=== PATIENT | male | born 1985 | race Caucasian/White ===

== ENCOUNTER 2020-10-19 18:20 | Emergency (ER) | payer OTHER ==
[~2020-10-19 18:20] MED LIST: Iopamidol 370 76% 100 ML VIAL ONE
[2020-10-19] MEDS ORDERED: Dexamethasone 4 MG TAB ONE (19:58)
[2020-10-19] MEDS ORDERED: Albuterol 200 PUFF (6.7GM INHALER) ONE (19:58)
[2020-10-19] MEDS ORDERED: Aspirin Chewable 81 MG TAB ONE (19:58)
[2020-10-19 20:01] LABS: #Lymphocytes 0.8 thou/uL (1.20-3.40); #Monocytes 0.4 thou/uL (0.11-0.59); #Neutrophils 15.9 thou/uL (1.40-6.50); %Basophils 0.1 % (0.0-1.0); %Lymphocytes 4.8 % (21.0-51.0); %Monocytes 2.3 % (0.0-10.0); %Neutrophils 92.8 % (42.0-75.0); Hemoglobin 15.4 g/dL (14.0-18.0); Mean Corpuscular Hemoglobin 29.3 pg (27.0-31.0); Mean Corpuscular Volume 88.9 fL (78.0-98.0); Mean Platelet Volume 6.2 fL (7.4-10.4); Platelet Count 295 thou/uL (130-400); RBC Distribution Width 13.1 % (11.5-14.5); Red Blood Cell (RBC) Count 5.25 mill/uL (4.70-6.10); White Blood Cell (WBC) Count 17.2 thou/uL (4.8-10.8)
[2020-10-19 20:13] LABS: ALT (SGPT) 27 U/L (8-55); AST (SGOT) 17 U/L (5-34); Albumin 4.2 g/dL (3.5-5.0); Alkaline Phosphatase 81 U/L (40-110); Anion Gap 16 mmol/L (10-20); BUN (Urea Nitrogen) 17 mg/dL (8.9-20.6); Bilirubin, Total 0.3 mg/dL (0.2-1.2); Calc. Creatinine Clearance 0 mL/min (70-130); Carbon Dioxide 23 mmol/L (22-29); Chloride 105 mmol/L (98-107); Globulin 3.7 g/dL (2.4-3.5); Glucose 131 mg/dL (70-105); Potassium 3.9 mmol/L (3.5-5.1); Protein, Total 7.9 g/dL (6.0-8.3); Sodium 140 mmol/L (136-145)
[2020-10-19] MEDS ORDERED: Azithromycin 250 MG TAB ONE (20:13)
--- NOTE | 2020-10-20 07:37 | RAD ---
PORTABLE CHEST: DATE: 10/19/2020. FINDINGS: An AP portable film at 2001 is submitted with no prior films available for comparison. Patchy infiltrates are seen bilaterally, worse on the left than right. An infectious etiology seems likely. Pulmonary edema seems less likely. The heart is mildly enlarged. There are no effusions. IMPRESSION: Patchy pulmonary infiltrates. POS: HOME
--- NOTE | 2020-10-20 07:46 | CT ---
CT ANGIO OF THE CHEST: DATE: 10/19/2020. FINDINGS: Spiral CT of the chest was done after a bolus of IV contrast. There is moderately good opacification of the pulmonary arteries and the large to medium-sized branches. No defects are seen here to sugge st a large emboli. Medium-sized distal branches might miss emboli. There is no sign of aortic disse ction or aneurysm. The heart is mildly enlarged, but no pericardial effusion was seen. There are a few enlarged nodes in the mediastinum, one of the largest being just to the left of the aortic arch a nd measuring about 2.6 cm in size. There are some enlarged hilar nodes as well. Diffuse infiltrativ e changes are seen throughout the lungs bilaterally, many of which are ground-glass in character. Th is is present throughout all lobes, moderate in coverage, and in the proper clinical setting would be consistent with COVID infection. There are no large effusions. Scans into the upper part of the ab domen showed no sign of adrenal mass. The liver seemed mildly generous in size. The spleen was bord terrell in size at about 14+ cm. IMPRESSION: 1. Moderate sensitivity study showing no evidence of pulmonary embolism in the large to medium-sized branches. 2. Moderately severe patchy pulmonary infiltrates, all lobes, some of which are ground-glass in appe arance. COVID is included in the differential, as well as other infectious causes. Findings discussed with Dr. Bear at 2111 on 10/19/2020. CODE CR POS: HOME
== END 2020-10-19 21:25 | disposition home or self-care (01) ==
LOC: BURERS 18:20
DX: U07.1 COVID-19 (principal); J12.82 Pneumonia due to coronavirus disease 2019; Z79.899 Other long term (current) drug therapy
CPT/HCPCS: 71045; 71275; 80053; 83605; 84484; 85025; 85379; J8540; Q9967

== ENCOUNTER 2021-10-05 19:31 | Emergency (ER) | payer OTHER ==
[2021-10-05 20:23] LABS: #Eosinphils 0.1 thou/uL (0.0-0.7); #Lymphocytes 1.1 thou/uL (1.20-3.40); #Monocytes 0.9 thou/uL (0.11-0.59); #Neutrophils 8.3 thou/uL (1.40-6.50); %Basophils 0.4 % (0.0-1.0); %Eosinophils 0.6 % (0.0-10.0); %Lymphocytes 10.8 % (21.0-51.0); %Monocytes 8.4 % (0.0-10.0); %Neutrophils 79.9 % (42.0-75.0); Hemoglobin 15.2 g/dL (14.0-18.0); Mean Corpuscular HGB CONC 33.5 g/dL (32.0-36.0); Mean Corpuscular Hemoglobin 29.8 pg (27.0-31.0); Mean Corpuscular Volume 88.7 fL (78.0-98.0); Platelet Count 340 thou/uL (130-400); RBC Distribution Width 12.6 % (11.5-14.5); Red Blood Cell (RBC) Count 5.12 mill/uL (4.70-6.10); White Blood Cell (WBC) Count 10.3 thou/uL (4.8-10.8)
[2021-10-05] MEDS ORDERED: Ketorolac Tromethamine 30 MG/ML VIAL ONE (20:44)
[2021-10-05] MEDS ORDERED: Ondansetron PF 4 MG/2 ML Vial ONE (20:44)
[2021-10-05 20:50] LABS: ALT (SGPT) 22 U/L (8-55); AST (SGOT) 15 U/L (5-34); Alkaline Phosphatase 74 U/L (40-110); Anion Gap 13 mmol/L (10-20); BUN (Urea Nitrogen) 13 mg/dL (8.9-20.6); Bilirubin, Total 0.7 mg/dL (0.2-1.2); Calc. Creatinine Clearance 0 mL/min (70-130); Calcium 8.6 mg/dL (7.8-10.44); Carbon Dioxide 21 mmol/L (22-29); Chloride 105 mmol/L (98-107); Globulin 3.2 g/dL (2.4-3.5); Glucose 97 mg/dL (70-105); Lipase 8 U/L (8-78); Potassium 3.4 mmol/L (3.5-5.1); Protein, Total 7.2 g/dL (6.0-8.3); Sodium 136 mmol/L (136-145)
[2021-10-05 21:00] LABS: Bilirubin Negative (Negative); Blood, Urine Negative (Negative); Clarity Clear (Clear); Glucose, Urine (Dipstick) Negative (Negative); Ketone, Urine Negative (Negative); Leukocyte Negative (Negative); Nitrite Negative (Negative); Protein, Urine (Dipstick) Negative (Neg-Trace); Specific Gravity, Urine 1.015 (1.005-1.030); Urobilinogen 0.2 mg/dL (Less than 2)
== END 2021-10-05 21:25 | disposition home or self-care (01) ==
LOC: BURERS 19:31
DX: K80.50 Calculus of bile duct without cholangitis or cholecystitis without obstruction (principal)
CPT/HCPCS: 36415; 74176; 80053; 81003; 83690; 85025; 96374; 96375; J1885; J2405

== ENCOUNTER 2021-12-08 16:20 | Emergency (ER) | payer OTHER ==
[2021-12-08 17:09] LABS: #Basophils 0.1 thou/uL (0.0-0.2); #Eosinphils 0.1 thou/uL (0.0-0.7); #Lymphocytes 3.2 thou/uL (1.20-3.40); #Monocytes 0.9 thou/uL (0.11-0.59); #Neutrophils 9.2 thou/uL (1.40-6.50); %Eosinophils 0.7 % (0.0-10.0); %Lymphocytes 23.5 % (21.0-51.0); %Monocytes 6.5 % (0.0-10.0); %Neutrophils 68.3 % (42.0-75.0); Hemoglobin 15.3 g/dL (14.0-18.0); Mean Corpuscular HGB CONC 32.1 g/dL (32.0-36.0); Mean Corpuscular Hemoglobin 29.7 pg (27.0-31.0); Mean Corpuscular Volume 92.6 fL (78.0-98.0); Mean Platelet Volume 7.1 fL (7.4-10.4); Platelet Count 396 thou/uL (130-400); RBC Distribution Width 13.5 % (11.5-14.5); Red Blood Cell (RBC) Count 5.17 mill/uL (4.70-6.10); White Blood Cell (WBC) Count 13.5 thou/uL (4.8-10.8)
[2021-12-08] MEDS ORDERED: Morphine 4 MG/ML VIAL ONE (17:10)
[2021-12-08 17:27] LABS: ALT (SGPT) 28 U/L (8-55); AST (SGOT) 20 U/L (5-34); Albumin 4.3 g/dL (3.5-5.0); Alkaline Phosphatase 86 U/L (40-110); Anion Gap 14 mmol/L (10-20); BUN (Urea Nitrogen) 11 mg/dL (8.9-20.6); Bilirubin, Total 0.3 mg/dL (0.2-1.2); Calc. Creatinine Clearance 0 mL/min (70-130); Calcium 9.2 mg/dL (7.8-10.44); Carbon Dioxide 25 mmol/L (22-29); Chloride 105 mmol/L (98-107); Globulin 3.1 g/dL (2.4-3.5); Glucose 71 mg/dL (70-105); Lipase 33 U/L (8-78); Potassium 4.5 mmol/L (3.5-5.1); Protein, Total 7.4 g/dL (6.0-8.3); Sodium 139 mmol/L (136-145)
[2021-12-08 17:51] LABS: Bilirubin Negative (Negative); Blood, Urine Negative (Negative); Clarity Clear (Clear); Glucose, Urine (Dipstick) Negative (Negative); Ketone, Urine Negative (Negative); Leukocyte Negative (Negative); Nitrite Negative (Negative); Protein, Urine (Dipstick) Negative (Neg-Trace); Specific Gravity, Urine 1.025 (1.005-1.030); Urobilinogen 0.2 mg/dL (Less than 2); pH, Urine 6.5 (5.0-9.0)
== END 2021-12-08 19:09 | disposition home or self-care (01) ==
LOC: BURERS 16:20
DX: R10.32 Left lower quadrant pain (principal); Z87.442 Personal history of urinary calculi
CPT/HCPCS: 74176; 80053; 81003; 83605; 83690; 85025; 96374; J2270